=== PATIENT | male | born 1940 | race Caucasian/White ===

== ENCOUNTER 2016-12-13 13:58 | Emergency (ER) | payer OTHER ==
--- NOTE | 2016-12-13 15:18 | DIAGNOSTIC IMAGING REPORT ---
PROCEDURE: CT HEAD WITHOUT CONTRAST INDICATION: TRAUMA/INJURY TECHNIQUE: Axial CT images were acquired through the head. Coronal and sagittal reformations were created. COMPARISON: None. FINDINGS: There is a small left occipital hemorrhagic contusion. There is subarachnoid blood in the sub frontal area and the interhemispheric fissure. There is no old craniectomy on the left and there is 2-3 mm of extra-axial fluid collection at the operative site. There is old encephalomalacia in right frontal lobe. The haines-white matter differentiation is normal. There is no edema. The calvarium is intact. The maxillary sinuses have bilateral air-fluid levels. The extracranial soft tissues and orbits are normal. IMPRESSION: 1. Subarachnoid hemorrhage and occipital hemorrhagic contusion. 2. Findings discussed with Roni at 03:[address] scans at this facility use dose modulation, iterative reconstruction, and/or weight-based dosing when appropriate to reduce radiation dose to as low as reasonably achievable.
--- NOTE | 2016-12-13 15:22 | DIAGNOSTIC IMAGING REPORT ---
PROCEDURE: CT CERVICAL SPINE W/O CONTRAST INDICATION: TRAUMA/INJURY TECHNIQUE: Noncontrast axial images with sagittal and coronal reformations. COMPARISON: None. FINDINGS: Osseous structures and disc spaces are normal. No evidence of an acute process or fracture. Alignment is normal. Mild cervical spondylosis. IMPRESSION: 1. Negative CT cervical spine. No evidence of an acute process or fracture.
--- NOTE | 2016-12-13 15:23 | DIAGNOSTIC IMAGING REPORT ---
PROCEDURE: XR KNEE 4 VIEWS - RIGHT INDICATION: TRAUMA/INJURY TECHNIQUE: Four views. COMPARISON: None. FINDINGS: Right total knee replacement. No of fracture or dislocation. IMPRESSION: 1. Right total knee replacement. No fracture or dislocation.
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
--- NOTE | 2016-12-13 16:05 | ED ORDER SUMMARY ---
..... Patient: ISRAEL MAGALLANES OrderSheet [facility] VisitID: [id number] [place] [address] 76y, M Registration Date/Time: 12/13/2016 ORDER SHEET Weight: 90.7 kg (stated) Allergies: NKDA GENERAL ORDERS: POC Glucose (14:19 12/13/2016 JBoardley R.N. verbal order read back to Maycol PAYAN) (14:19 JBoardley R.N.) CT Head wo Cont Urgent (14:21 12/13/2016 Maycol PAYAN) (Ack 14:31 LNations ER Tech1) (14:46 JBoardley R.N.) CT Cervical Spine wo Cont Urgent (14:21 12/13/2016 Maycol PAYAN) (Ack 14:31 LNations ER Tech1) (14:46 JBoardley R.N.) Knee 3V Right Urgent (14:21 12/13/2016 Maycol PAYAN) (Cancelled: Other14:28 Maycol PAYAN) Knee 4V Right Urgent (14:28 12/13/2016 Maycol PAYAN) (Ack 14:31 LNations ER Tech1) (14:46 JBoardley R.N.) CBC w Diff Urgent (15:26 12/13/2016 Maycol PAYAN) (Ack 15:37 Surjit) (15:56 JBoardley R.N.) CMP Urgent (15:26 12/13/2016 Maycol PAYAN) (Ack 15:37 Surjit) (15:56 JBoardley R.N.) UA-Culture if indicated Urgent (15:26 12/13/2016 Maycol PAYAN) (Ack 15:37 Surjit) PT with INR Urgent (15:26 12/13/2016 Maycol PAYAN) (Ack 15:37 Surjit) (15:56 JBoardley R.N.) MEDICATION ORDERS: Tdap IM 0.5 mL (NOW, per protocol) (14:18 12/13/2016 JBoardley R.N. per protocol) (14:18 JBoardley R.N.) IV FLUIDS: IV Saline Lock (15:26 12/13/2016 Maycol PAYAN) (15:45 Mateo Webster) ORDER SHEET NOTES: [Electronically signed by Epi Leija R.N. (17:30 12/13/2016)] [Electronically signed by Jovanna Tamayo MD (10:19 12/15/2016)] [Electronically locked/signed by Epi Leija R.N. (17:30 12/13/2016)]
--- NOTE | 2016-12-13 16:05 | ED ORDER SUMMARY ---
..... Patient: ISRAEL MAGALLANES OrderSheet [facility] VisitID: [id number] [place] [address] 76y, M Registration Date/Time: 12/13/2016 ORDER SHEET Weight: 90.7 kg (stated) Allergies: NKDA GENERAL ORDERS: POC Glucose (14:19 12/13/2016 JBoardley R.N. verbal order read back to Maycol PAYAN) (14:19 JBoardley R.N.) CT Head wo Cont Urgent (14:21 12/13/2016 Maycol PAYAN) (Ack 14:31 LNations ER Tech1) (14:46 JBoardley R.N.) CT Cervical Spine wo Cont Urgent (14:21 12/13/2016 Maycol PAYAN) (Ack 14:31 LNations ER Tech1) (14:46 JBoardley R.N.) Knee 3V Right Urgent (14:21 12/13/2016 Maycol PAYAN) (Cancelled: Other14:28 Maycol PAYAN) Knee 4V Right Urgent (14:28 12/13/2016 Maycol PAYAN) (Ack 14:31 LNations ER Tech1) (14:46 JBoardley R.N.) CBC w Diff Urgent (15:26 12/13/2016 Maycol PAYAN) (Ack 15:37 Surjit) (15:56 JBoardley R.N.) CMP Urgent (15:26 12/13/2016 Maycol PAYAN) (Ack 15:37 Surjit) (15:56 JBoardley R.N.) UA-Culture if indicated Urgent (15:26 12/13/2016 Maycol PAYAN) (Ack 15:37 Surjit) PT with INR Urgent (15:26 12/13/2016 Maycol APYAN) (Ack 15:37 Surjit) (15:56 JBoardley R.N.) MEDICATION ORDERS: Tdap IM 0.5 mL (NOW, per protocol) (14:18 12/13/2016 JBoardley R.N. per protocol) (14:18 JBoardley R.N.) IV FLUIDS: IV Saline Lock (15:26 12/13/2016 Maycol PAYAN) (15:45 Mateo Webster) ORDER SHEET NOTES: [Electronically signed by Epi Leija R.N. (17:30 12/13/2016)] [Electronically signed by Jovanna Tamayo MD (10:19 12/15/2016)] [Electronically locked/signed by Epi Leija R.N. (17:30 12/13/2016)]
--- NOTE | 2016-12-15 10:20 | ED MED RECONCILIATION SUMMARY ---
Patient: ISRAEL MAGALLANES Medication Reconciliation Report [facility] VisitID: [id number] [address] [place] [address] 76y, M Registration Date/Time: 12/13/2016 Weight: 90.7 kg Height/Length: 65 in. BMI: 33.3 ALLERGIES: NKDA The patient's Home Medications are listed below: THE FOLLOWING MEDICATIONS NEED TO BE RECONCILED: Aspirin Oral Finasteride Oral 5 mg, daily Insulin Lantus 20 Units, at night Metoprolol Tartrate Oral 25 mg, day NovoLOG Subcutaneous 12 units, 2x a day Simvastatin Oral 20 mg, daily Tamsulosin HCl Oral (0.4 mg), daily The source(s) of the original Home Medication information: EMS patient The following Medications were given to the patient in the Emergency Department: TDAP [IM] IM 0.5 mL, administered: 12/13/2016 2:13:00 PM The following Medications were prescribed to the patient: None.
--- NOTE | 2016-12-15 10:20 | ED MED RECONCILIATION SUMMARY ---
Patient: ISRAEL MAGALLANES Medication Reconciliation Report [facility] VisitID: [id number] [address] [place] [address] 76y, M Registration Date/Time: 12/13/2016 Weight: 90.7 kg Height/Length: 65 in. BMI: 33.3 ALLERGIES: NKDA The patient's Home Medications are listed below: THE FOLLOWING MEDICATIONS NEED TO BE RECONCILED: Aspirin Oral Finasteride Oral 5 mg, daily Insulin Lantus 20 Units, at night Metoprolol Tartrate Oral 25 mg, day NovoLOG Subcutaneous 12 units, 2x a day Simvastatin Oral 20 mg, daily Tamsulosin HCl Oral (0.4 mg), daily The source(s) of the original Home Medication information: EMS patient The following Medications were given to the patient in the Emergency Department: TDAP [IM] IM 0.5 mL, administered: 12/13/2016 2:13:00 PM The following Medications were prescribed to the patient: None.
--- NOTE | 2016-12-15 10:20 | ED MAR SUMMARY ---
..... Medication Administration [facility] [address] [place] [address] Patient: ISRAEL MAGALLANES Visit ID: [id number] 76y, M Weight: 90.7 kg Height/Length: 65 in BMI: 33.3 ALLERGIES: NKDA Given 14:13 12/13/2016 Epi Leija R.N. Medication Administered: TDAP [IM], Dose: 0.5 mL IM. Medication Ordered: Tdap IM 0.5 mL (NOW, per protocol).
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
--- NOTE | 2016-12-15 10:20 | ED MAR SUMMARY ---
..... Medication Administration [facility] [address] [place] [address] Patient: ISRAEL MAGALLANES Visit ID: [id number] 76y, M Weight: 90.7 kg Height/Length: 65 in BMI: 33.3 ALLERGIES: NKDA Given 14:13 12/13/2016 Epi Leija R.N. Medication Administered: TDAP [IM], Dose: 0.5 mL IM. Medication Ordered: Tdap IM 0.5 mL (NOW, per protocol).
== END 2016-12-13 16:54 | disposition short-term general hospital (02) ==
LOC: ED SRH 13:58
DX: S06.6X0A Traumatic subarachnoid hemorrhage without loss of consciousness, initial encounter (principal); S01.01XA Laceration without foreign body of scalp, initial encounter; S06.350A Traumatic hemorrhage of left cerebrum without loss of consciousness, initial encounter; S80.01XA Contusion of right knee, initial encounter; V03.10XA Pedestrian on foot injured in collision with car, pick-up truck or van in traffic accident, initial encounter; Y93.01 Activity, walking, marching and hiking; Y92.510 Bank as the place of occurrence of the external cause; Y99.9 Unspecified external cause status; Z23 Encounter for immunization; Z96.651 Presence of right artificial knee joint; I10 Essential (primary) hypertension